=== PATIENT | female | born 1940 | race Caucasian/White ===

== ENCOUNTER 2016-11-18 01:05 | Emergency (ER) | payer MEDICAID ==
[~2016-11-18] VITALS: Ht 167.6 cm; Wt 68.0 kg
[~2016-11-18 01:05] MED LIST: ACETAMINOPHEN650 M6 GT; BACTRIM DS 8001 TAB PO; COLACE GT; COLACE100 M1 PO; COMPAZINE25 MG RC; DULCOLAX10 MG RC; EXELON1.5 MG PO; FERROUS SULF GT; GLUCAGEN1 MG; GLUCERNA GT; GLUCERNA PO; JANUVIA100 MG GT; LANTUS INS100 UNITS/ SUBQ; NACL IV; NOVOLIN N100 UNITS/ SUBQ; OSCAL+D 500 MG/1 TAB PO; ROCEPHIN 11000 MG/50 IV; TYLENOL325 M1 PO; ZINC OXIDE 20% TP; ZOCOR20 MG GT; ZOCOR20 MG PO
--- NOTE | 2016-11-18 01:11 | NUR ---
PT IMELDA BLS. TAKEN TO BED 3
[2016-11-18 01:13] VITALS: BP 124/76
--- NOTE | 2016-11-18 01:32 | NUR ---
Dr. Rodriguez evaluating patient at bedside.
--- NOTE | 2016-11-18 01:35 | NUR ---
REINSERTS GT TUBE 20FR/15ML, GASTRIC CONTENT PER ASPIRATE FROM GT.TUBE.
--- NOTE | 2016-11-18 01:40 | NUR ---
76Y/F PT. BIBA TO ED WITH C/O GT TUBE DISLODGED. PT. FROM [facility]. ALERT WITH EYE OPEN, RESPONDS TO TOUCH AND PAIN. BEDBOUND. RESPIRATIONS VIA NC O2 2 LPM,EVEN AND UNLABORED. GT TUIBE DISLODGED, COVER WITH GAUZE, GASTRIC CONTENT NOTED. VSS, NO S/SX OF DISTRESS AT THIS TIME. DR. SANTOS MADE AWARE OF PT. STATUS.
--- NOTE | 2016-11-18 02:24 | NUR ---
X-Ray at bedside.
--- NOTE | 2016-11-18 03:17 | NUR ---
Note carlota in EDM - 11/18/16 at 0326 by [facility] Patient discharged with v/s stable. Written and verbal after care instructions given and explained. Patient verbalized understanding. Ambulance Transport with to alf. All questions addressed prior to discharge. Advised to follow up with PMD.
--- NOTE | 2016-11-18 03:23 | NUR ---
PT TAKEN BY [facility] TO [facility] ROOM 19C
[2016-11-18 03:24] VITALS: BP 114/50
--- NOTE | 2016-11-18 03:25 | NUR ---
SPOKE TO CINDY AT [facility], PT WAS JUST PICKED UP BY [facility] Doll ON ROUTE BACK TO [facility]
--- NOTE | 2016-11-18 03:26 | NUR ---
Patient discharged with v/s stable. Written and verbal after care instructions given and explained. Patient verbalized understanding. Ambulance Transport with to [facility]. All questions addressed prior to discharge. Advised to follow up with PMD.
== END 2016-11-18 03:26 | disposition home or self-care (01) ==
LOC: MED 01:05
DX: Z43.1 Encounter for attention to gastrostomy (principal); J45.909 Unspecified asthma, uncomplicated; E11.9 Type 2 diabetes mellitus without complications; I10 Essential (primary) hypertension; Z79.4 Long term (current) use of insulin; Z79.899 Other long term (current) drug therapy
CPT/HCPCS: 43760; 74241; 99284; Q0092

== ENCOUNTER 2016-12-12 07:21 | Emergency (ER) | payer MEDICAID ==
[~2016-12-12] VITALS: Ht 167.6 cm; Wt 68.0 kg
[2016-12-12 07:26] VITALS: BP 110/54
--- NOTE | 2016-12-12 07:41 | NUR ---
ER MD AT BEDSIDE FOR EXAM
--- NOTE | 2016-12-12 07:55 | NUR ---
ermd reiserted gtube without difficulties/flushed by ermd .dressing applied. ermd said no need to have xr done for gtube placement confirmation
--- NOTE | 2016-12-12 11:18 | NUR ---
NO ACUTE CHANGE IN CONDITION, PT WITH EYES CLOSED, IN NAD. RESP EVEN AND UNLABORED, ON VIA NC @98%. SR UP X2, BED LOCKED FOR SAFETY. WILL CONT TO MONITOR NEEDED. AWAITING TRANSPORTATION.
--- NOTE | 2016-12-12 13:02 | NUR ---
TRANSPORT AMBULANCE TO TAKE PT BACK TO [facility]. UPDATED ON VITALS AND STATUS. VSS, PT STABLE FOR TRANSFER. ALL ACCORDINGPAPERWORK AND OCUMENTS ALONG WITH FACESHEET WITH AMBULANCE PERSONNEL.
[2016-12-12 13:26] VITALS: BP 126/81
== END 2016-12-12 13:02 ==
LOC: MED 07:22
DX: Z43.1 Encounter for attention to gastrostomy (principal)

== ENCOUNTER 2018-02-13 05:30 | Inpatient (IN) | payer MEDICAID ==
[~2018-02-13] VITALS: Ht 152.4 cm; Wt 65.3 kg
[~2018-02-13 05:30] MED LIST changes: +ACET-8331 GT; -ACETAMINOPHEN650 M6 GT; -BACTRIM DS 8001 TAB PO; +BISA10SU1 RC; +COL100L GT; -COLACE GT; -COLACE100 M1 PO; +COM25S RC; -COMPAZINE25 MG RC; -DULCOLAX10 MG RC; -EXELON1.5 MG PO; +FERR75LI22 GT; -FERROUS SULF GT; +GLU1I; -GLUCAGEN1 MG; -GLUCERNA GT; -GLUCERNA PO; -JANUVIA100 MG GT; -LANTUS INS100 UNITS/ SUBQ; +LANTUS SUBQ; -NACL IV; +NOVN SUBQ; -NOVOLIN N100 UNITS/ SUBQ; -OSCAL+D 500 MG/1 TAB PO; +OSCD500 PO; +RIVA1.5C2 PO; -ROCEPHIN 11000 MG/50 IV; +SIMV20TA1 GT; +SIMV20TA1 PO; +SITA100T8 GT; -TYLENOL325 M1 PO; -ZINC OXIDE 20% TP; +ZINC20OI TP; -ZOCOR20 MG GT; -ZOCOR20 MG PO; +[UNRECOGNIZED DRUG - CODE] GT; +[UNRECOGNIZED DRUG - CODE] IV; +[UNRECOGNIZED DRUG - CODE] PO
--- NOTE | 2018-02-13 05:31 | NUR ---
Patient BIBA ACLS, transferred to bed 4. RN evaluating patient at bedside.
[2018-02-13 05:35] VITALS: BP 102/60
--- NOTE | 2018-02-13 05:35 | NUR ---
77/F BIBA FROM [facility]. PER EMS, PT ALOC X3 HRS, [place] PUCKERING OF MOUTH, FROWNING AND MAKING INTERMITTENT UNUSUAL SOUNDS. BS 221 [address] SCENE. EMS PLACED R HAND 22G, 1L NS BOLUS RUNNING. PT APHASIC, BEDBOUND AT BASELINE. LUNG SOUNDS CLEAR BL. ABD SOFT ROUND NONTENDER, BS ACTIVE X4. G TUBE NOTED. HX DEMENTIA, DYSPHAGIA S/P PEG, DM2, HTN. CONNECTED TO MONITOR. ER MD AT BEDSIDE TO EVALUATE PT.
[2018-02-13] MEDS ORDERED: DOCU100T31 GT (06:00)
[2018-02-13] MEDS ORDERED: SLIDE SUBQ (06:00)
[2018-02-13] MEDS ORDERED: SIMV20TA1 GT (06:00)
[2018-02-13] MEDS ORDERED: FERR220E24 GT (06:00)
[2018-02-13] MEDS ORDERED: NACL 0.9% 1,000 ML IV ONE ×2 (06:10→07:30)
[2018-02-13 06:28] LABS: BASOPHILS # (AUTO) 0.1 K/uL (0.00-0.22); BASOPHILS % (AUTO) 0.8 % (0.0-2.0); EOSINOPHILS # (AUTO) 0.2 K/uL (0-0.4); EOSINOPHILS % (AUTO) 2.9 % (0.0-4.0); HEMATOCRIT 37.9 % (36-48); LYMPHOCYTES # (AUTO) 1.6 K/uL (2.5-16.5); LYMPHOCYTES % (AUTO) 18.4 % (20.5-51.1); MEAN CORPUSCULAR HEMOGLOBIN 31 pg (27-31); MEAN CORPUSCULAR HGB CONC 32 g/dL (33-37); MEAN CORPUSCULAR VOLUME 99.5 fL (80-94); MONOCYTES # (AUTO) 0.3 K/uL (0.8-1.0); MONOCYTES % (AUTO) 3.8 % (1.7-9.3); NEUTROPHILS # (AUTO) 6.3 K/uL (1.8-7.7); NEUTROPHILS % (AUTO) 74.1 % (42.2-75.2); PLATELET COUNT (AUTO) 106 K/uL (140-450); RED BLOOD CELL COUNT(AUTO) 3.81 MIL/uL (4.20-5.40); RED CELL DISTRIBUTION WIDTH 15.3 % (11.6-13.7); WHITE BLOOD COUNT (AUTO) 8.5 K/uL (4.8-10.8)
--- NOTE | 2018-02-13 06:52 | NUR ---
PT RESTING IN BED, FLACC 0, VSS ON O2 4L NC, RR EVEN AND UNLABORED. ALL NEEDS MET AT THIS TIME.
[2018-02-13 06:53] LABS: PROTHROMBIN TIME 9.9 secs (10.8-13.4)
--- NOTE | 2018-02-13 07:10 | NUR ---
Pt report given to SHELBY LOWRY. Transfer of care at this time.
[2018-02-13 07:11] LABS: ALBUMIN 2.7 g/dL (3.4-5.0); ANION GAP 9.6 (8-16); ASPARTATE AMINOTRANSFERASE 46 U/L (15-37); CARBON DIOXIDE 33.5 mmol/L (21-32); CHLORIDE 116 mmol/L (98-107); CREATININE 0.7 mg/dL (0.6-1.3); GLUCOSE 301 mg/dL (74-106); LIPASE 246 U/L (73-393); POTASSIUM 4.1 mmol/L (3.5-5.1); SODIUM SERUM 155 mmol/L (136-145); TOTAL BILIRUBIN 0.5 mg/dL (0.0-1.0); UREA NITROGEN, BLOOD 45 mg/dL (7-18)
[2018-02-13 07:11] LABS: BILIRUBIN,URINE NEGATIVE (NEGATIVE); BLOOD, URINE TRACE-I (NEGATIVE); LEUKOCYTE ESTERASE ,URINE SMALL (NEGATIVE); NITRITE, URINE NEGATIVE (NEGATIVE); PH,URINE 6.5 (5.0-9.0); UGLUCOSE >=1000 (NEGATIVE)
[2018-02-13 07:12] LABS: APPEARANCE,URINE CLOUDY (CLEAR); COLOR,URINE YELLOW (YELLOW)
[2018-02-13 07:13] LABS: RBC,URINE NONE SEEN /HPF (0-5); WBC,URINE 20-60 /HPF (0-5)
[2018-02-13 07:14] LABS: YEAST,URINE Moderate /HPF (None Seen)
--- NOTE | 2018-02-13 07:15 | NUR ---
pt. resting comfortably in bed,sleeping rr even and unlabored. will continue to monitor.
--- NOTE | 2018-02-13 07:24 | NUR ---
Claudia from lab called to report critical of lactic acid: 2.6 .
[2018-02-13] MEDS ORDERED: LEVOFLOXACIN 750 MG/D5W PREMIX 150 ML IV ONE (08:30)
--- NOTE | 2018-02-13 08:30 | NUR ---
pt. resting comfortanly in bed, rr even and unlabored. bed in lowest position. vss. Will continue to monitor.
[2018-02-13] MEDS ORDERED: ACETAMINOPHEN 325 MG TAB PO PRN (08:40)
[2018-02-13] MEDS ORDERED: DOCUSATE SODIUM 100 MG GELCAP PO PRN (08:40)
[2018-02-13] MEDS ORDERED: ONDANSETRON 4 MG/2 ML VIAL IM/IVP PRN (08:40)
[2018-02-13] MEDS ORDERED: INSULIN REGULAR, HUMAN 100 UNIT/ML VIAL SUBQ ONE (08:45)
[2018-02-13] MEDS ORDERED: DEXT 5% / NACL 0.45% 1,000 ML IV ONE (08:50)
[2018-02-13] MEDS ORDERED: ACETAMINOPHEN 650 MG/20.3 ML UDC GT PRN (08:55)
[2018-02-13] MEDS ORDERED: DOCUSATE 100 MG/10 ML UDC GT PRN (08:55)
[2018-02-13] MEDS ORDERED: DEXTROSE 50% 50 ML SYR IVP PRN (09:20)
--- NOTE | 2018-02-13 09:29 | NUR ---
Patient will be admitted to care of dr. Matthews . Admited to telemetry . Will go to room 121B. Belongings list completed. Report to SHELBY Ramos .
--- NOTE | 2018-02-13 09:30 | NUR ---
PATIENT BROUGHT TO UNIT FROM THE ER VIA GURNEY. RECEIVED BEDSIDE REPORT FROM CLOTH REELER NEO. PATIENT IS APHASIC. HAS NASAL CANNULA AT 2LPM, HAS NO SIGNS AND SYMPTOMS OF ACUTE DISTRESS NOTED AT THIS TIME. HAS TWO IV SITES, LEFT WRIST 20 G, AND RIGHT HAND 22G. SITES ARE CLEAN, DRY PATENT AND INTACT. HAS G-TUBE. ARMS ARE SEMI CONTRACTED. ORIENTED PATIENT TO THE ROOM. EXPLAINED CALL LIGHT. PATIENT UNABLE TO COMPREHEND. BED IN LOWEST POSITION, SIDE RAILS UP X2, CALL LIGHT WITHIN REACH. WILL CONTINUE TO MONITOR.
[2018-02-13] MEDS ORDERED: DOCUSATE 100 MG/10 ML UDC GT SCH (09:37)
--- NOTE | 2018-02-13 10:44 | NUR ---
PATIENT HAS BEEN SCREENED AND CATEGORIZED HIGH NUTRITION RISK. PATIENT WILL BE SEEN WITHIN 1-2 DAYS OF ADMISSION. 02/13/18 02/14/[address]
[2018-02-13 10:45] LABS: MAGNESIUM 2.6 mg/dL (1.8-2.4); PHOSPHORUS 2.2 mg/dL (2.5-4.9); THYROID STIMULATING HORMONE 3.38 uIU/mL (0.34-3.74)
[2018-02-13] MEDS: NACL 0.45% 1,000 ML IV SCH (11:10)
[2018-02-13] MEDS: BLOOD GLUCOSE MONITORING 1 DEV DEV FS SCH ×3 (11:56→21:09)
[2018-02-13 12:00] VITALS: BP 112/43
[2018-02-13 16:00] VITALS: BP 107/56
--- NOTE | 2018-02-13 16:00 | NUR ---
02/13/18 RD INITIAL ASSESSMENT COMPLETED PLEASE REFER TO NUTRITION ASSESSMENT UNDER CARE ACTIVITY FOR ESTIMATED NUTRITIONAL NEEDS. 1. WHEN/IF MEDICALLY STABLE TO BEGIN NUTRITION, CONSIDER ADVANCING TF TOLERATED TO GLUCERNA 1.2 @ GOAL RATE 55ML/H WITH 120ML FLUSH Q4H --THIS WILL PROVIDE 1584 KCAL (100% ESTIMATED ENERGY NEEDS), 79.2 GM PROTEIN (108% ESTIMATED PROTEIN NEEDS), AND 1542 ML FLUID --INTIATE TF AT 20ML/H AND INCREASE 10 ML Q4-6H UNTIL GOAL RATE ACHIEVED 2. RD TO FOLLOW-UP 2-3 DAYS, HIGH RISK JOYCE HULL RD
[2018-02-13] MEDS ORDERED: CALCIUM CARB/VIT-D 500 MG/200 IU 1 TAB GT SCH (17:00)
[2018-02-13] MEDS ORDERED: SODIUM PHOS / POTASSIUM PHOS 1 PKT PDR GT SCH (17:00)
--- NOTE | 2018-02-13 17:20 | NUR ---
WENT TO GIVE PATIENTS G-TUBE MEDICATION BUT NOTICED I WASN'T ABLE TO CONNECT THE PISTON SYRINGE TO THE G TUBING DUE TO THE CONNECTION. MADE SHANE VALDEZ RN AWARE.
--- NOTE | 2018-02-13 19:30 | NUR ---
ENDORSED PATIENT TO HORN PLAYER RN FOR CONTINUITY OF CARE. PATIENT IN STABLE CONDITION.
--- NOTE | 2018-02-13 19:32 | NUR ---
RECEIVED PT ON BED WITH EYES CLOSED, APHASIC, PT DOES NOT OPEN EYES BUT MOANS ONLY, WITHDRAWS TO TOUCH AND LIGHT PAIN, VITAL SIGNS STABLE, FLACC-0 AND NO SOB NOTED, G-TUBE CLAMPED AT THIS TIME, TO START ON TUBE FEEDING, IVF INFUSING WELL, SAFETY MEASURES IN PLACE, PLAN OF CARE DISCUSSED WITH FAMILY MEMBERS AT BEDSIDE, WILL REPOSITION Q2H AND OFFLOAD PRESSURES AREAS, CALL LIGHT WITHIN REACH.
[2018-02-13 20:00] VITALS: BP 99/49
[2018-02-13] MEDS: INSULIN LANTUS 100 UNITS/ML 10 ML VIAL SUBQ SCH (21:18)
[2018-02-13] MEDS: INSULIN LISPRO SLIDING SCALE 100 UNITS/ML VIAL SUBQ PRN (21:19)
--- NOTE | 2018-02-13 21:22 | NUR ---
NO G-TUBE RESIDUAL NOTED, TUBE FEEDING OF GLUCERNA 1.2 10 ML/H STARTED WITH FREE WATER FLUSH OF 120ML Q4H AND TO INCREASED RATE 10ML Q3H IF TOLERATING WELL WITH GOAL RATE OF 55ML/H, HOB ELEVATED AT ALL TIMES, AZAEL GAUZE APPLIED TO G-TUBE SITE, NO DRAINAGE OR REDNESS NOTED TO SITE, DUE LANTUS ADMINISTERED, ROCEPHIN IVPB INFUSING WELL, MONITORED FOR REACTION, NEEDS ANTICIPATED.
[2018-02-14] VITALS: BP 107/48
--- NOTE | 2018-02-14 00:30 | NUR ---
PT BM WITH MODERATE SOFT BLACK STOOL, INCONTINENT OF URINE, PERINEAL CARE DONE, REPOSITIONED AND OFFLOAD PRESSURE AREAS, NO G-TUBE RESIDUAL NOTED, G-TUBE FEEDING RATE INCREASED TO 20ML/H, MAINTAINED HOB ELEVATED AT ALL TIMES, MONITORED CLOSELY.
[2018-02-14] MEDS: NACL 0.45% 1,000 ML IV SCH ×2 (01:32→12:10)
--- NOTE | 2018-02-14 03:50 | NUR ---
PT SLEEPING, VITAL SIGNS STABLE, FLCC-0, NO SOB NOTED, 10 ML G-TUBE RESIDUAL NOTED, FEEDING RATE INCREASES TO 30ML/H, MONITORED CLOSELY.
[2018-02-14 04:00] VITALS: BP 109/43
[2018-02-14] MEDS: INSULIN LISPRO SLIDING SCALE 100 UNITS/ML VIAL SUBQ PRN ×4 (05:55→20:34)
--- NOTE | 2018-02-14 06:00 | NUR ---
BLOOD SUGAR CHECKED WITH 224 RESULT, COVERAGE GIVEN, 5ML RESIDUAL NOTED, G-TUBE FEEDING RATE INCREASED TO 40ML/H, HOB ELEVATED AT ALL TIMES, IVF INFUSING WELL, MONITORED CLOSELY.
[2018-02-14] MEDS: BLOOD GLUCOSE MONITORING 1 DEV DEV FS SCH ×4 (06:55→20:25)
[2018-02-14 07:05] LABS: BASOPHILS % (AUTO) 0.4 % (0.0-2.0); EOSINOPHILS # (AUTO) 0.2 K/uL (0-0.4); EOSINOPHILS % (AUTO) 2.4 % (0.0-4.0); HEMATOCRIT 32.2 % (36-48); HEMOGLOBIN 10.3 g/dL (12.0-16.0); LYMPHOCYTES % (AUTO) 25.8 % (20.5-51.1); MEAN CORPUSCULAR HEMOGLOBIN 32 pg (27-31); MEAN CORPUSCULAR HGB CONC 32 g/dL (33-37); MEAN CORPUSCULAR VOLUME 99.1 fL (80-94); MONOCYTES # (AUTO) 0.5 K/uL (0.8-1.0); NEUTROPHILS # (AUTO) 4.9 K/uL (1.8-7.7); NEUTROPHILS % (AUTO) 65.4 % (42.2-75.2); PLATELET COUNT (AUTO) 90 K/uL (140-450); RED BLOOD CELL COUNT(AUTO) 3.25 MIL/uL (4.20-5.40); RED CELL DISTRIBUTION WIDTH 15.2 % (11.6-13.7); WHITE BLOOD COUNT (AUTO) 7.6 K/uL (4.8-10.8)
--- NOTE | 2018-02-14 07:10 | NUR ---
PT SLEEPING, NO SIGNS OF DISTRESS, REPORT GIVEN TO SHELBY ESTRELLA FOR CONTINUITY OF CARE.
--- NOTE | 2018-02-14 07:11 | NUR ---
RECEIVED REPORT FROM MULTI OPERATION MACHINE OPERATOR RN. PATIENT IS APHASIC, DOES NOT RESPOND TO VERBAL COMMANDS, HAS EYES CLOSED. THIS IS PATIENTS BASELINE. HAS NO SIGNS AND SYMPTOMS OF ACUTE DISTRESS NOTED AT THIS TIME. HAS IV TO THE LEFT HAND 20 G INFUSING 1/2 NS AT 80 ML/HR. HAS IV TO THE RIGHT HAND 22G SALINE LOCK. SITES ARE CLEAN, DRY, PATENT AND INTACT. PATIENT HAS G-TUBE WITH FEEDING AT A RATE OF 40 ML/HR. WILL INCREASE TO MEET GOAL. BED IS IN LOWEST POSITION, SIDE RAILS UP X2, CALL LIGHT WITHIN REACH. WILL CONTINUE TO MONITOR.
[2018-02-14 08:00] VITALS: BP 104/56
[2018-02-14 08:12] LABS: ANION GAP 7.2 (8-16); CARBON DIOXIDE 29.5 mmol/L (21-32); CHLORIDE 115 mmol/L (98-107); CREATININE 0.4 mg/dL (0.6-1.3); GLUCOSE 213 mg/dL (74-106); POTASSIUM 3.7 mmol/L (3.5-5.1); SODIUM SERUM 148 mmol/L (136-145); UREA NITROGEN, BLOOD 19 mg/dL (7-18)
[2018-02-14 08:20] LABS: MAGNESIUM 2.2 mg/dL (1.8-2.4); PHOSPHORUS 2.1 mg/dL (2.5-4.9)
[2018-02-14 08:29] LABS: T4 (THYROXINE) 4.4 ug/dL (4.5-12.0)
[2018-02-14] MEDS ORDERED: INSULIN LANTUS 100 UNITS/ML 10 ML VIAL SUBQ SCH (09:00)
--- NOTE | 2018-02-14 09:10 | NUR ---
PATIENTS FAMILY HERE AND REQUESTING TO TALK TO DR JOSEPH. WILL INFORM HIM.
--- NOTE | 2018-02-14 09:30 | NUR ---
PATIENT HAD ZERO RESIDUAL. INCREASED FEEDING RATE TO 55, WHICH IS THE GOAL. PATIENT TOLERATING FEEDING WELL. WILL CONTINUE TO MONITOR.
[2018-02-14] MEDS: FLUCONAZOLE 100 MG TAB GT SCH (09:42)
[2018-02-14] MEDS: DOCUSATE 100 MG/10 ML UDC GT SCH (09:42)
[2018-02-14] MEDS: FERROUS SULFATE 300 MG/5 ML UDC GT SCH (09:42)
[2018-02-14] MEDS: LACTOBACILLUS RHAMNOSUS GG 1 EACH CAP GT SCH (09:43)
--- NOTE | 2018-02-14 11:30 | NUR ---
PATIENTS BLOOD SUGAR IS 202, WILL ADMINISTER INSULIN. NO S/SX OF DISTRESS NOTED.
[2018-02-14 12:00] VITALS: BP 113/65
--- NOTE | 2018-02-14 13:50 | NUR ---
PATIENT RESTING IN BED. HAS NO SIGNS AND SYMPTOMS OF ACUTE DISTRESS. WILL CONTINUE TO MONITOR.
--- NOTE | 2018-02-14 14:38 | NUR ---
Tribal Judge Note: Per Shanice from [facility] , patient is on a 7 day bed hold and is one of their residential patients. Shanice stated patient's healthcare decision maker is her daughter Shayna Patel. I called and spoke with Shayna , speaks Faroese. Per Shayna, she would like patient to return to [facility] upon discharge. She stated she spoke with MD this morning regarding patient's current medical condition.
[2018-02-14 16:00] VITALS: BP 106/45
--- NOTE | 2018-02-14 19:20 | NUR ---
ENDORSED PATIENT TO FASHION STYLIST RN FOR CONTINUITY CARE. PATIENT IN STABLE CONDITION.
--- NOTE | 2018-02-14 19:21 | NUR ---
RECEIVED BEDSIDE REPORT FROM DAY SHIFT NURSE SENA RN, PT STABLE, NO DISTRESS NOTED, PT APHASIC, IV TO L HAND 20G PATENT, INTACT, INFUSING 1/2 NS @ 80ML/HR, INFUSING WELL, IV TO R FA 22G PATENT, INTACT, SL, PT ON 2LPM O2 VIA NC, NO SOB NOTED, G TUBE IN PLACE WITH FEEDINGS, PT TOLERATING FEEDING WELL, INITIAL ASSESSMENT DONE, ALL SAFETY PRECAUTION MET, WILL CONTINUE TO MONITOR.
[2018-02-14 20:00] VITALS: BP 115/51
[2018-02-14] MEDS: INSULIN LANTUS 100 UNITS/ML 10 ML VIAL SUBQ SCH (20:34)
--- NOTE | 2018-02-14 20:34 | NUR ---
DUE MEDICATION ADMINISTERED, CHECKED ON PT BLOOD SUGAR, 210, INSULIN PER PROTOCOL GIVEN, PT TOLERATED WELL, CALL LIGHT WITHIN REACH, WILL CONTINUE TO MONITOR.
--- NOTE | 2018-02-14 22:29 | NUR ---
MEDICATION ORDERED GIVEN, PT TOLERATED WELL, TUBE FEEDING CHANGED, PT HAS NO RESIDUAL, TOLERATING FEEDING WELL, CALL LIGHT WITHIN REACH, WILL CONTINUE TO MONITOR.
[2018-02-14] MEDS ORDERED: SODIUM PHOS / POTASSIUM PHOS 1 PKT PDR GT SCH (22:30)
[2018-02-15] VITALS: BP 116/53
--- NOTE | 2018-02-15 00:05 | NUR ---
CHECKED ON PT, PT RESTING, NO DISTRESS NOTE, CALL LIGHT WITHIN REACH, WILL CONTINUE TO MONITOR.
[2018-02-15] MEDS: NACL 0.45% 1,000 ML IV SCH ×2 (00:58→14:40)
[2018-02-15 04:00] VITALS: BP 103/47
--- NOTE | 2018-02-15 04:04 | NUR ---
CHECKED ON PT, PT RESTING, NO DISTRESS NOTED, CALL LIGHT WITHIN REACH, V/S TAKEN, WNL, WILL CONTINUE TO MONITOR.
[2018-02-15] MEDS: BLOOD GLUCOSE MONITORING 1 DEV DEV FS SCH ×4 (05:39→21:17)
[2018-02-15] MEDS: INSULIN LISPRO SLIDING SCALE 100 UNITS/ML VIAL SUBQ PRN ×4 (05:40→21:22)
[2018-02-15 06:54] LABS: BASOPHILS % (AUTO) 0.3 % (0.0-2.0); EOSINOPHILS # (AUTO) 0.1 K/uL (0-0.4); EOSINOPHILS % (AUTO) 1.7 % (0.0-4.0); HEMATOCRIT 31.3 % (36-48); HEMOGLOBIN 10.1 g/dL (12.0-16.0); LYMPHOCYTES # (AUTO) 1.5 K/uL (2.5-16.5); LYMPHOCYTES % (AUTO) 17.6 % (20.5-51.1); MEAN CORPUSCULAR HEMOGLOBIN 32 pg (27-31); MEAN CORPUSCULAR HGB CONC 32 g/dL (33-37); MEAN CORPUSCULAR VOLUME 97.8 fL (80-94); MONOCYTES # (AUTO) 0.6 K/uL (0.8-1.0); MONOCYTES % (AUTO) 6.6 % (1.7-9.3); NEUTROPHILS # (AUTO) 6.3 K/uL (1.8-7.7); NEUTROPHILS % (AUTO) 73.8 % (42.2-75.2); PLATELET COUNT (AUTO) 100 K/uL (140-450); RED CELL DISTRIBUTION WIDTH 14.8 % (11.6-13.7); WHITE BLOOD COUNT (AUTO) 8.5 K/uL (4.8-10.8)
[2018-02-15 07:13] LABS: CHLORIDE 113 mmol/L (98-107); CREATININE 0.5 mg/dL (0.6-1.3); GLUCOSE 277 mg/dL (74-106); SODIUM SERUM 145 mmol/L (136-145); UREA NITROGEN, BLOOD 14 mg/dL (7-18)
--- NOTE | 2018-02-15 07:24 | NUR ---
REPORT GIVEN TO AM NURSE KAYLI RN, AT BEDSIDE. PT IN STABLE CONDITION. NO DISTRESS NOTED, CALL LIGHT WITHIN REACH.
--- NOTE | 2018-02-15 07:25 | NUR ---
REPORT RECEIVED FROM BAGGAGE SMASHER NURSE. PT SLEEPING COMFORTABLY IN BED, RESPIRATIONS EVEN & UNLABORED, NO SIGNS OF DISTRESS, RESPONSIVE TO VOICE & TOUCH. CALL LIGHT WITHIN REACH.
[2018-02-15 07:29] LABS: MAGNESIUM 2.4 mg/dL (1.8-2.4); PHOSPHORUS 2.8 mg/dL (2.5-4.9)
[2018-02-15 08:00] VITALS: BP 119/59
--- NOTE | 2018-02-15 08:30 | NUR ---
ALL DUE MEDS GIVEN. PT ELÍAS WELL. GT IN PLACE & PATENT. PT RESPONSIVE TO VOICE & TOUCH BUT NON-VERBAL & DOES NOT OPEN EYES. SAFETY MEASURES IN PLACE.
[2018-02-15] MEDS: LACTOBACILLUS RHAMNOSUS GG 1 EACH CAP GT SCH (08:39)
[2018-02-15] MEDS: FLUCONAZOLE 100 MG TAB GT SCH (08:39)
[2018-02-15] MEDS: FERROUS SULFATE 300 MG/5 ML UDC GT SCH (08:40)
[2018-02-15] MEDS: DOCUSATE 100 MG/10 ML UDC GT SCH (08:40)
[2018-02-15 09:41] VITALS: BP 119/59
--- NOTE | 2018-02-15 11:45 | NUR ---
PT TAKEN OFF DECISION UNIT RN, PT NOW M/S STATUS.
[2018-02-15] MEDS ORDERED: Z-GUARD PASTE TP PRN (16:05)
[2018-02-15 16:11] VITALS: BP 103/42
--- NOTE | 2018-02-15 19:19 | NUR ---
REPORT GIVEN TO STEAM PRESSER NURSE.
--- NOTE | 2018-02-15 19:20 | NUR ---
RECD. RESTING IN BED, SLEEPING BUT MOVES WHEN TOUCHED AND QUESTIONS ASKED, APHASIC. RESPIRATION EVEN AND UNLABORED. IV OF 1/2 NS AT 80 ML/HR INFUSING. GT FEEDING OF GLUCERNA AT 55 ML/HR INFUSING. GT SITE DRY AND CLEAN. HOB ELEVATED 35 DEGREES. SACRAL WOUND COVERED WITH DRESSING, DRY AND INTACT. PLAN OF CARE DISCUSSED WITH DAUGHTER. VERBALIZED UNDERSTANDING. NO APPEARANCE OF PAIN NOTED.
[2018-02-15] MEDS: INSULIN LANTUS 100 UNITS/ML 10 ML VIAL SUBQ SCH (21:20)
--- NOTE | 2018-02-15 21:20 | NUR ---
BS - 219, MEDICATED WITH LANTUS ORDERED.
--- NOTE | 2018-02-15 22:00 | NUR ---
HAD BM, CLEANSED AND REPOSITIONED IN BED WITH PILLOWS FOR COMFORT.
[2018-02-16] VITALS: BP 106/56
--- NOTE | 2018-02-16 | NUR ---
SLEEPING COMFORTABLY IN BED.
[2018-02-16] MEDS: NACL 0.45% 1,000 ML IV SCH ×3 (01:40→16:44)
--- NOTE | 2018-02-16 04:00 | NUR ---
CONDITION REMAIN STABLE. NO APPEARANCE OF PAIN NOTED 0/10.
[2018-02-16] MEDS: BLOOD GLUCOSE MONITORING 1 DEV DEV FS SCH ×4 (06:19→20:55)
[2018-02-16] MEDS: INSULIN LISPRO SLIDING SCALE 100 UNITS/ML VIAL SUBQ PRN ×4 (06:21→21:29)
[2018-02-16 07:17] LABS: BASOPHILS % (AUTO) 0.3 % (0.0-2.0); EOSINOPHILS # (AUTO) 0.2 K/uL (0-0.4); EOSINOPHILS % (AUTO) 3.1 % (0.0-4.0); HEMATOCRIT 30.4 % (36-48); HEMOGLOBIN 10.1 g/dL (12.0-16.0); LYMPHOCYTES # (AUTO) 1.8 K/uL (2.5-16.5); LYMPHOCYTES % (AUTO) 24.4 % (20.5-51.1); MEAN CORPUSCULAR HEMOGLOBIN 32 pg (27-31); MEAN CORPUSCULAR HGB CONC 33 g/dL (33-37); MEAN CORPUSCULAR VOLUME 97.2 fL (80-94); MONOCYTES # (AUTO) 0.4 K/uL (0.8-1.0); MONOCYTES % (AUTO) 5.7 % (1.7-9.3); NEUTROPHILS # (AUTO) 4.8 K/uL (1.8-7.7); NEUTROPHILS % (AUTO) 66.5 % (42.2-75.2); PLATELET COUNT (AUTO) 103 K/uL (140-450); RED BLOOD CELL COUNT(AUTO) 3.12 MIL/uL (4.20-5.40); WHITE BLOOD COUNT (AUTO) 7.2 K/uL (4.8-10.8)
[2018-02-16 07:31] LABS: ANION GAP 6.4 (8-16); CARBON DIOXIDE 29.6 mmol/L (21-32); CHLORIDE 110 mmol/L (98-107); CREATININE 0.5 mg/dL (0.6-1.3); GLUCOSE 289 mg/dL (74-106); SODIUM SERUM 142 mmol/L (136-145); UREA NITROGEN, BLOOD 14 mg/dL (7-18)
[2018-02-16 07:34] LABS: MAGNESIUM 2.2 mg/dL (1.8-2.4); PHOSPHORUS 2.7 mg/dL (2.5-4.9)
--- NOTE | 2018-02-16 07:35 | NUR ---
CONDITION REMAIN STABLE. ENDORSED TO AM NURSE FOR CONTINUITY OF CARE.
--- NOTE | 2018-02-16 07:36 | NUR ---
REPORT RECEIVED FROM PUBLIC HEALTH AIDES TEACHER NURSE, PT SLEEPING QUIETLY IN NAD, RESP EVNE UNLABORED, SKIN WARM DRY COLOR WNL, APPEARS IN NO PAIN OR DISCOMFORT, PLAN OF CARE REVIEWED, ALL SAFETY MEASURES IN PLACE, WILL CONTINUE TO MONITOR.
[2018-02-16 08:00] VITALS: BP 111/41
--- NOTE | 2018-02-16 08:08 | NUR ---
PT INCONTINENT, BMX1, PT CLEANED, PERICARE DONE, POSITION CHANGED, PT ELÍAS WELL, WILL CONTINUE TO MONTIOR.
--- NOTE | 2018-02-16 10:08 | NUR ---
BED BATH GIVEN BY FLEXIBLE NANNY, PT ELÍAS WELL.
[2018-02-16] MEDS: FLUCONAZOLE 100 MG TAB GT SCH (10:27)
[2018-02-16] MEDS: FERROUS SULFATE 300 MG/5 ML UDC GT SCH (10:27)
[2018-02-16] MEDS: LACTOBACILLUS RHAMNOSUS GG 1 EACH CAP GT SCH (10:27)
[2018-02-16] MEDS: DOCUSATE 100 MG/10 ML UDC GT SCH (10:27)
--- NOTE | 2018-02-16 13:30 | NUR ---
Training Technician Note: I faxed patient's medical information to [facility]. Per Crossbar Switch Adjuster Diana, patient is not on isolation. Per Angel from [facility] , patient may go to room 18B at their facility over weekend, accepting physician is Lei Cabrales.
[2018-02-16 16:00] VITALS: BP 123/83
--- NOTE | 2018-02-16 16:38 | NUR ---
02/16/18 RD FOLLOW UP COMPLETED PLEASE REFER TO NUTRITION PROGRESS NOTE UNDER CARE ACTIVITY FOR ESTIMATED NUTRITION NEEDS. RD RECOMMENDATIONS: 1. CONTINUE WITH TUBE FEED TOLERATED -- NUTRITION SUPPORT PROVIDES: 1584KCAL, 79.2 GM PRO, AND 1542 ML FLUID. THIS IS MEETING 100% OF ESTIMATED KCAL NEEDS AND 108% PATIENT ESTIMATED PROTEIN NEEDS 2. RD WILL F/U 2-3 DAYS; HIGH RISK. JOYCE HULL RD
--- NOTE | 2018-02-16 16:52 | NUR ---
BM X1, PERICARE DONE, POSIITON CHANGED, INSULIN 4U GIVEN FOR 226 BLOOD SUGAR
--- NOTE | 2018-02-16 19:02 | NUR ---
DR. AGUDELO NOTIFIED OF URINE C&S FINAL RESULT.
--- NOTE | 2018-02-16 19:15 | NUR ---
REPORT GIVEN TO CLINICAL DENTAL TECHNICIAN NURSE. PT SLEEPING IN BED, RESP EVEN UNLABORED. SAFETY MEASURES IN PLACE.
--- NOTE | 2018-02-16 19:16 | NUR ---
REPORT RECEIVED FROM AM NURSE. PT IN STABLE CONDITION. AAOX1. BOARD UPDATED AND INTRODUCED SELF TO PT. IV SITE PATENT AND INTACT. SKIN IS WARM, DRY, AND NOT INTACT DUE TO A SACRAL WOUND THAT IS HEALED BUT OPEN. PT HAS TUBE FEEDING 55ML/HR OF GLUCERNA 1.2 WITH NO RESIDUAL. 2L VIA NC. BED LOCKED IN LOW POSITION. CALL KULKARNI WITHIN REACH.
--- NOTE | 2018-02-16 21:25 | NUR ---
OCTAVIA TINSLEY. LANTUS 10 UNITS GIVEN. BS 181. 2 UNITS OF HUMALOG GIVEN. PT TOLERATED WELL.
[2018-02-16] MEDS: INSULIN LANTUS 100 UNITS/ML 10 ML VIAL SUBQ SCH (21:29)
--- NOTE | 2018-02-16 23:45 | NUR ---
VS STABLE. NO S/S OF DISTRESS NOTED. CHEST EXPANSION VISIBLE. WILL CONTINUE TO MONITOR.
[2018-02-17] VITALS: BP 112/49
--- NOTE | 2018-02-17 03:00 | NUR ---
PT SLEEPING COMFORTABLY SUPINE. NO S/S OF DISTRESS NOTED. WILL CONTINUE TO MONITOR.
[2018-02-17] MEDS: NACL 0.45% 1,000 ML IV SCH (05:15)
--- NOTE | 2018-02-17 05:30 | NUR ---
BS 271. 6 UNITS OF HUMALOG GIVEN TO THE RIGHT UPPER ARM. PT TOLERATED WELL.
[2018-02-17] MEDS: BLOOD GLUCOSE MONITORING 1 DEV DEV FS SCH (05:33)
[2018-02-17] MEDS: INSULIN LISPRO SLIDING SCALE 100 UNITS/ML VIAL SUBQ PRN (05:35)
--- NOTE | 2018-02-17 07:12 | NUR ---
REPORT GIVEN TO AM NURSE AT BEDSIDE. PT IN STABLE CONDITION.
--- NOTE | 2018-02-17 07:12 | NUR ---
BEDSIDE REPORT GIVEN FROM PAROLE DIRECTOR NURSE YOSEF. PT IN BED, APHASIC, BEDBOUND. IV IN L HAND 20 G RUNNING NS AT 80 ML/HR. CONTINUOS FEEDING AT 55 ML/HR THOUGHT G-TUBE. NO SIGNS OF ACUTE DISTRESS, BED IN LOWEST POSITION, CALL LIGHT WITHIN REACH, WILL CONTINUE TO MONITOR.
[2018-02-17 07:17] LABS: BASOPHILS % (AUTO) 0.5 % (0.0-2.0); EOSINOPHILS # (AUTO) 0.2 K/uL (0-0.4); EOSINOPHILS % (AUTO) 2.3 % (0.0-4.0); HEMOGLOBIN 9.7 g/dL (12.0-16.0); LYMPHOCYTES # (AUTO) 1.8 K/uL (2.5-16.5); LYMPHOCYTES % (AUTO) 24.7 % (20.5-51.1); MEAN CORPUSCULAR HEMOGLOBIN 32 pg (27-31); MEAN CORPUSCULAR HGB CONC 33 g/dL (33-37); MEAN CORPUSCULAR VOLUME 96.5 fL (80-94); MONOCYTES # (AUTO) 0.4 K/uL (0.8-1.0); MONOCYTES % (AUTO) 4.8 % (1.7-9.3); NEUTROPHILS % (AUTO) 67.7 % (42.2-75.2); PLATELET COUNT (AUTO) 109 K/uL (140-450); RED BLOOD CELL COUNT(AUTO) 3.01 MIL/uL (4.20-5.40); RED CELL DISTRIBUTION WIDTH 14.4 % (11.6-13.7); WHITE BLOOD COUNT (AUTO) 7.3 K/uL (4.8-10.8)
[2018-02-17 07:37] LABS: ANION GAP 9.5 (8-16); CARBON DIOXIDE 26.1 mmol/L (21-32); CHLORIDE 105 mmol/L (98-107); CREATININE 0.4 mg/dL (0.6-1.3); GLUCOSE 253 mg/dL (74-106); POTASSIUM 4.6 mmol/L (3.5-5.1); SODIUM SERUM 136 mmol/L (136-145); UREA NITROGEN, BLOOD 12 mg/dL (7-18)
[2018-02-17 08:00] VITALS: BP 125/45
[2018-02-17] MEDS ORDERED: LEVOFLOXACIN 500 MG TAB PO SCH (09:00)
[2018-02-17] MEDS ORDERED: FLUC100T1 GT (09:06)
[2018-02-17] MEDS ORDERED: LEVO500T2 PO (09:06)
[2018-02-17] MEDS ORDERED: LACT10CA GT (09:06)
[2018-02-17] MEDS: FLUCONAZOLE 100 MG TAB GT SCH (09:19)
[2018-02-17] MEDS: LACTOBACILLUS RHAMNOSUS GG 1 EACH CAP GT SCH (09:20)
[2018-02-17] MEDS: FERROUS SULFATE 300 MG/5 ML UDC GT SCH (09:20)
[2018-02-17] MEDS: DOCUSATE 100 MG/10 ML UDC GT SCH (09:20)
--- NOTE | 2018-02-17 09:30 | NUR ---
PT RESTING IN BED NO SIGNS OF ACUTE DISTRESS, CALL LIGHT WITHIN REACH WILL CONTINUE TO MONITOR.
[2018-02-17 10:40] VITALS: BP 125/45
--- NOTE | 2018-02-17 11:20 | NUR ---
CALLED FAMILY REGARDING PT BEING TRANSFERRED, NO ANSWER LEFT MESSAGE. D/C IV IN L HAND, 20 G, CATH INTACT. PT UNABLE TO SIGN D/C PAPERWORK, PT LEFT UNIT STABLE VIA DOC ALAMO. Addendum: 02/17/18 at 1158 by Melissa Black RN PICTURE OF CLOSED SACRAL WOUND TAKEN AND PLACED IN CHART.
[2018-02-18] MEDS ORDERED: LEVOFLOXACIN 250 MG TAB PO SCH (09:00)
== END 2018-02-17 11:20 | DRG 42 ==
LOC: MED 05:30 → MTU 08:45
PROVIDERS: ADMIT General Practice; ATTEND General Practice
DX: G30.9 Alzheimer's disease, unspecified (principal); N17.0 Acute kidney failure with tubular necrosis; E43 Unspecified severe protein-calorie malnutrition; G93.41 Metabolic encephalopathy; E87.0 Hyperosmolality and hypernatremia; E11.65 Type 2 diabetes mellitus with hyperglycemia; D68.59 Other primary thrombophilia; F02.81 Dementia in other diseases classified elsewhere, unspecified severity, with behavioral disturbance; G90.9 Disorder of the autonomic nervous system, unspecified; E87.8 Other disorders of electrolyte and fluid balance, not elsewhere classified; N39.0 Urinary tract infection, site not specified; E83.52 Hypercalcemia; E83.41 Hypermagnesemia; I10 Essential (primary) hypertension; J44.9 Chronic obstructive pulmonary disease, unspecified; I27.21 Secondary pulmonary arterial hypertension; Z86.73 Personal history of transient ischemic attack (TIA), and cerebral infarction without residual deficits; Z93.1 Gastrostomy status; Z68.28 Body mass index [BMI] 28.0-28.9, adult; Z79.899 Other long term (current) drug therapy; Z79.4 Long term (current) use of insulin; Z74.01 Bed confinement status
CPT/HCPCS: 36415; 70450; 71045; 80048; 80053; 81001; 82948; 83036; 83605; 83690; 83735; 83880; 83970; 84100; 84134; 84436; 84443; 84484; 85025; 85610; 87040; 87081; 87086; 87186; 93005; 93308; 93880; 93925; 93970; 96360; 96361; 99285; J0696; J1815; J1956; J7030; J7060; Q0092

== ENCOUNTER 2019-02-11 11:36 | Inpatient (IN) | payer MEDICAID ==
[~2019-02-11] VITALS: Ht 160 cm; Wt 63.5 kg
[~2019-02-11 11:36] MED LIST changes: -BISA10SU1 RC; -COL100L GT; -COM25S RC; +DOCU100T31 GT; +FERR220E24 GT; -FERR75LI22 GT; +FLUC100T1 GT; +LACT10CA GT; +LEVO500T2 PO; -NOVN SUBQ; -OSCD500 PO; -RIVA1.5C2 PO; -SIMV20TA1 PO; +SLIDE SUBQ; -ZINC20OI TP; -[UNRECOGNIZED DRUG - CODE] GT; -[UNRECOGNIZED DRUG - CODE] IV; -[UNRECOGNIZED DRUG - CODE] PO
--- NOTE | 2019-02-11 11:36 | NUR ---
Note undone in EDM - 02/11/19 at 1309 by MED IMELDA FROM [facility] FOR G TUBE REPLACEMENT. PER EMS, G-TUBE CAME OFF UNKNOWN TIME LAST NIGHT. PT NON VERBAL, ON O2 2 LPM. NEUROLOGICALLY AT BASE LINE. IV LEFT HAND 18 G INITIATED TRAILER RENTAL CLERK, INTACT AND PATENT. NO SIGNS AND SYMPTOMS OF DISTRESS NOTED. HOB UP. BED SIDE RAILS UP X1. ON LOW BED POSITION, LOCKED. ER TO EVALUATE PT.
--- NOTE | 2019-02-11 11:36 | NUR ---
Patient BIBA BLS, transferred to bed 10. RN evaluating patient at bedside.
--- NOTE | 2019-02-11 11:36 | NUR ---
IMELDA FROM [facility] FOR G TUBE REPLACEMENT. PER EMS, G-TUBE CAME OFF UNKNOWN TIME LAST NIGHT. PT NON VERBAL, ON O2 2 LPM. NEUROLOGICALLY AT BASE LINE. IV LEFT HAND 18 G INITIATED SPRAY GUN SIZER, DATED 02/10/19, INTACT AND PATENT. NO SIGNS AND SYMPTOMS OF DISTRESS NOTED. HOB UP. BED SIDE RAILS UP X1. ON LOW BED POSITION, LOCKED. ER TO EVALUATE PT.
[2019-02-11 11:41] VITALS: BP 98/47
--- NOTE | 2019-02-11 11:50 | NUR ---
DR MOORE AT BEDSIDE FOR PT EVALUATION
[2019-02-11] MEDS ORDERED: ONDANSETRON 4 MG/2 ML VIAL IM/IVP PRN (12:15)
[2019-02-11] MEDS ORDERED: NACL 0.9% 1,000 ML IV SCH (12:15)
--- NOTE | 2019-02-11 12:21 | NUR ---
tool repair technician at bedside.
--- NOTE | 2019-02-11 12:52 | NUR ---
IV INITIATED TO RIGHT HAND WITH 22G, INTACT AND PATENT. OBTAINED BLOOD DRAW ORDERED, SENT TO LAB.
[2019-02-11 13:05] VITALS: BP 142/61
--- NOTE | 2019-02-11 13:05 | NUR ---
Patient will be admitted to care of DR BENITEZ. Admited to TELE. Will go to room 122 B. Belongings list completed. Report to SHELBY COFFEY.
--- NOTE | 2019-02-11 13:05 | NUR ---
PATIENT ARRIVED UNIT VIA [facility] ACCOMPANIED BY ER NURSE. TRANSFERRED PATIENT FROM [facility] TO BED AND POSITIONED PATIENT COMFORTABLY. PATIENT IS AAOX1. PATIENT IS APHASIC, ABLE TO LOCALIZE PAIN. FLACC 0. RESPIRATION EVEN AND UNLABORED ON 2LPM VIA NC. NO SIGNS OF DISTRESS NOTED. IV ON L HAND 18 G AND R HAND 22G, CLEAN AND INTACT, NOT INFUSING AT THIS TIME. G-TUBE STOMA ON ABDOMEN NOTED, OTHERWISE SKIN CLEAN AND DRY. BOTH ARMS ARE RIGID, PLACED TOWELS UNDER ARMS TO RELEASE PRESSURE. PATIENT IS INCONTINENT AND BEDREST. ORIENTED PATIENT TO THE ROOM, AND EDUCATED PATIENT ON HOW TO USE THE CALL LIGHT FOR ANY ASSISTANCE, BED REMOTE, TELEPHONE, TV, LIGHT AND BATHROOM. PATIENT UNABLE TO COMPREHEND AND REINFORCEMENT NEEDED. VITAL SIGNS TAKEN AND MRSA COLLECTED. TELE MONITOR ATTACHED. CHANGED PATIENT INTO YELLOW GOWN, SOCKS, APPLIED WRIST BAND, AND POSTED SIGN. SAFETY MEASURES IN PLACE. BED ALARM ACTIVATED. BED IN LOW POSITION AND CALL LIGHT WITHIN REACH.
[2019-02-11 13:09] LABS: BASOPHILS # (AUTO) 0.1 K/uL (0.00-0.22); BASOPHILS % (AUTO) 0.8 % (0.0-2.0); EOSINOPHILS # (AUTO) 0.3 K/uL (0-0.4); EOSINOPHILS % (AUTO) 4.4 % (0.0-4.0); HEMATOCRIT 34.3 % (36-48); HEMOGLOBIN 11.1 g/dL (12.0-16.0); LYMPHOCYTES # (AUTO) 1.7 K/uL (2.5-16.5); LYMPHOCYTES % (AUTO) 23.3 % (20.5-51.1); MEAN CORPUSCULAR HEMOGLOBIN 31 pg (27-31); MEAN CORPUSCULAR HGB CONC 32 g/dL (33-37); MEAN CORPUSCULAR VOLUME 94.2 fL (80-94); MONOCYTES # (AUTO) 0.5 K/uL (0.8-1.0); MONOCYTES % (AUTO) 6.9 % (1.7-9.3); NEUTROPHILS # (AUTO) 4.6 K/uL (1.8-7.7); NEUTROPHILS % (AUTO) 64.6 % (42.2-75.2); PLATELET COUNT (AUTO) 184 K/uL (140-450); RED BLOOD CELL COUNT(AUTO) 3.64 MIL/uL (4.20-5.40); WHITE BLOOD COUNT (AUTO) 7.1 K/uL (4.8-10.8)
[2019-02-11] MEDS ORDERED: ACETAMINOPHEN 650 MG/20.3 ML UDC GT PRN (13:30)
[2019-02-11] MEDS ORDERED: GLUCAGON 1 MG VIAL IM PRN (13:30)
[2019-02-11 13:32] LABS: ANION GAP 9.1 (8-16); CARBON DIOXIDE 32.2 mmol/L (21-32); CHLORIDE 107 mmol/L (98-107); CREATININE 0.6 mg/dL (0.6-1.3); GLUCOSE 142 mg/dL (74-106); POTASSIUM 4.3 mmol/L (3.5-5.1); SODIUM SERUM 144 mmol/L (136-145); UREA NITROGEN, BLOOD 20 mg/dL (7-18)
[2019-02-11 13:35] LABS: PROTHROMBIN TIME 9.8 secs (10.8-13.4)
[2019-02-11] MEDS ORDERED: DEXTROSE 50% 50 ML SYR IVP PRN (13:40)
[2019-02-11 13:49] LABS: MAGNESIUM 2.2 mg/dL (1.8-2.4); PHOSPHORUS 3.5 mg/dL (2.5-4.9); THYROID STIMULATING HORMONE 0.83 uIU/mL (0.34-3.74)
--- NOTE | 2019-02-11 15:20 | NUR ---
PATIENT IS RESTING ON BED. RESPIRATION EVEN AND UNLABORED ON 2LPM VIA NC. NO SIGNS OF DISTRESS NOTED. TELE MONITOR ATTACHED. SAFETY MEASURES IN PLACE. BED IN LOW POSITION AND CALL LIGHT WITHIN REACH.
[2019-02-11 16:00] VITALS: BP 135/59
[2019-02-11] MEDS: DEXT 5% / NACL 0.45% 1,000 ML IV SCH (16:38)
[2019-02-11] MEDS: BLOOD GLUCOSE MONITORING 1 DEV DEV FS SCH ×2 (16:39→21:07)
--- NOTE | 2019-02-11 17:35 | NUR ---
DR NEVILLE ASSESSED AND INSERTED THE G-TUBE AT BEDSIDE. NO SIGNS OF DISTRESS NOTED. TELE MONITOR ATTACHED. SAFETY MEASURES IN PLACE. BED IN LOW POSITION AND CALL LIGHT WITHIN REACH.
[2019-02-11 18:52] LABS: ALBUMIN 3.4 g/dL (3.4-5.0); ANION GAP 12.4 (8-16); ASPARTATE AMINOTRANSFERASE 15 U/L (15-37); CARBON DIOXIDE 29.8 mmol/L (21-32); CHLORIDE 105 mmol/L (98-107); CREATININE 0.7 mg/dL (0.6-1.3); GLUCOSE 147 mg/dL (74-106); POTASSIUM 4.2 mmol/L (3.5-5.1); SODIUM SERUM 143 mmol/L (136-145); TOTAL BILIRUBIN 0.5 mg/dL (0.0-1.0); UREA NITROGEN, BLOOD 18 mg/dL (7-18)
--- NOTE | 2019-02-11 19:20 | NUR ---
ENDORSED PATIENT AT BEDSIDE TO AIRLINE TRANSPORT PILOT NURSE FOR CONTINUITY OF CARE. PATIENT IS IN STABLE CONDITION. NO SIGNS OF DISTRESS NOTED. TELE MONITOR ATTACHED. SAFETY MEASURES IN PLACE. BED IN LOW POSITION AND CALL LIGHT WITHIN REACH.
--- NOTE | 2019-02-11 19:21 | NUR ---
RECEIVED REPORT FROM RADHA COFFEY. NO DISTRESS. NO SOB. NC @2L. A/O X0. APHASIC. DISCUSSED PLAN OF CARE. REINFORCEMENT NEEDED. APHASIC. VITALS WNL. L HAND 18G. INFUSING D5 1/2 NS @60. PATENT AND INTACT. SKIN INTACT. G TUBE IN PLACE. PATENT AND INTACT. INCONTINENT. STANDARD PREC IN PLACE. FALL RISK PROTOCOL IN PLACE. BED IN LOWEST POSITION. CALL LIGHT WITHIN REACH. WILL CONTINUE TO MONITOR.
[2019-02-11 20:00] VITALS: BP 142/32
--- NOTE | 2019-02-11 20:14 | NUR ---
X RAY AT BEDSIDE
[2019-02-11] MEDS: SIMVASTATIN 20 MG TAB GT SCH (21:08)
[2019-02-11] MEDS: INSULIN LISPRO SLIDING SCALE 100 UNITS/ML VIAL SUBQ PRN (21:14)
[2019-02-11] MEDS: INSULIN LANTUS 100 UNITS/ML 10 ML VIAL SUBQ SCH (21:17)
--- NOTE | 2019-02-11 22:00 | NUR ---
NO SIGNS OF DISTRESS. NO SOB. FLACC 0. BED IN LOWEST POSITION. CALL LIGHT WITHIN REACH. WILL CONTINUE TO MONITOR.
[2019-02-12] VITALS: BP 116/45
--- NOTE | 2019-02-12 00:33 | NUR ---
PERFORMING FARZANA CARE AND CHANGE. ASSIST OF ADJUNCT WRITING INSTRUCTOR. TOLERATED WELL. FLACC 0. VITALS WNL. WILL CONTINUE TO MONITOR.
--- NOTE | 2019-02-12 02:00 | NUR ---
PT SLEEPING. NO SIGNS OF DISTRESS. WILL CONTINUE TO MONITOR. BED IN LOWEST POSITION. CALL LIGHT WITHIN REACH.
[2019-02-12 04:00] VITALS: BP 110/50
--- NOTE | 2019-02-12 04:00 | NUR ---
PT IS RESTING IN BED. NO SIGNS OF DISTRESS. VITALS ARE WNL. TOLERATED WELL. WILL CONTINUE TO MONITOR.
--- NOTE | 2019-02-12 06:00 | NUR ---
GARGLING SOUND HEARD. BROWN LIQUID COMING FROM PT MOUTH. STRONG ODOR. WILL MAKE DR AWARE.
--- NOTE | 2019-02-12 06:20 | NUR ---
MADE DR AWARE OF PT SITUATION. DR ASSESSED PT. AND ORDERED FOR NG TUBE INSERTION. WITH INTERMITTENT SUCTION. WILL INSERT AND CONTINUE TO MONITOR.
[2019-02-12 06:21] LABS: CREATININE 0.9 mg/dL (0.6-1.3); GLUCOSE 327 mg/dL (74-106); UREA NITROGEN, BLOOD 19 mg/dL (7-18)
[2019-02-12 06:26] LABS: CARBON DIOXIDE 21.7 mmol/L (21-32); CHLORIDE 104 mmol/L (98-107); POTASSIUM 3.3 mmol/L (3.5-5.1); SODIUM SERUM 143 mmol/L (136-145)
[2019-02-12 06:27] LABS: CHOL/HDL RATIO 3.1 (1-4.5)
--- NOTE | 2019-02-12 06:30 | NUR ---
NG TUBE PLACED ON INTERMITTENT SUCTION PER DR ORDER. X RAY WILL CONFIRM PLACEMENT.
[2019-02-12 06:43] LABS: HEMOGLOBIN 11.7 g/dL (12.0-16.0); MEAN CORPUSCULAR HEMOGLOBIN 30 pg (27-31); MEAN CORPUSCULAR HGB CONC 32 g/dL (33-37); MEAN CORPUSCULAR VOLUME 96.2 fL (80-94); PLATELET COUNT (AUTO) 292 K/uL (140-450); RED BLOOD CELL COUNT(AUTO) 3.84 MIL/uL (4.20-5.40); RED CELL DISTRIBUTION WIDTH 16.4 % (11.6-13.7); WHITE BLOOD COUNT (AUTO) 16.6 K/uL (4.8-10.8)
[2019-02-12] MEDS: BLOOD GLUCOSE MONITORING 1 DEV DEV FS SCH ×4 (06:45→20:47)
[2019-02-12] MEDS: INSULIN LISPRO SLIDING SCALE 100 UNITS/ML VIAL SUBQ PRN ×3 (06:48→17:03)
--- NOTE | 2019-02-12 06:50 | NUR ---
X RAY AT BEDSIDE.
[2019-02-12 07:00] LABS: ANION GAP 20.6 (8-16)
--- NOTE | 2019-02-12 07:15 | NUR ---
RECEIVED BEDSIDE REPORT FROM ELECTRICAL CALIBRATOR NURSE FOR CONTINUITY OF CARE. PATIENT IS AAOX0. PATIENT IS APHASIC, ABLE TO LOCALIZE PAIN. FLACC 0. RESPIRATION EVEN AND UNLABORED ON 2LPM VIA NC. NO SIGNS OF DISTRESS NOTED. IV ON L HAND 18 G, CLEAN AND DRY, INFUSING PER MD ORDER. R HAND 22G, CLEAN AND INTACT, SL. G-TUBE IN PLACE. NOT IN USE AT THIS TIME, PENDING FOR CONFIRM. BOTH ARMS ARE RIGID, PLACED TOWELS UNDER ARMS TO RELEASE PRESSURE. PATIENT IS INCONTINENT AND BEDREST. NGT IN PLACE, AND PLACE ON INTERMITTENT SUCTION, BROWN FLUID SUCTION OUT AT THIS TIME. TELE MONITOR IN PLACE. SAFETY MEASURES IN PLACE. BED ALARM ACTIVATED. BED IN LOW POSITION AND CALL LIGHT WITHIN REACH.
--- NOTE | 2019-02-12 07:16 | NUR ---
ENDORSED PT TO DAYSHIFT SHELBY COFFEY. PT IN STABLE CONDITION.
[2019-02-12 07:46] LABS: LYMPHOCYTES % (MANUAL) 7 % (20-46); MONOCYTES % (MANUAL) 4 % (5-12)
[2019-02-12 08:00] VITALS: BP 139/69
--- NOTE | 2019-02-12 08:44 | NUR ---
PATIENT HAS BEEN SCREENED AND CATEGORIZED HIGH NUTRITION RISK. PATIENT WILL BE SEEN WITHIN 1-2 DAYS OF ADMISSION. 02/12/19-02/13/[address]
[2019-02-12] MEDS ORDERED: DOCUSATE 100 MG/10 ML UDC GT SCH (09:00)
[2019-02-12] MEDS: FERROUS SULFATE 300 MG/5 ML UDC GT SCH (09:36)
[2019-02-12] MEDS: DEXT 5% / NACL 0.45% 1,000 ML IV SCH (09:37)
--- NOTE | 2019-02-12 09:38 | NUR ---
ADMINISTERED MEDS VIA NGT, PATIENT TOLERATED WELL. WILL HOLD NGT SUCTION FOR AN HOUR. PATIENT AWAKE WITH EYES OPEN. RESPIRATION EVEN AND UNLABORED ON 2LPM VIA NC. NO SIGNS OF DISTRESS NOTED. TELE MONITOR ATTACHED. SAFETY MEASURES IN PLACE. BED IN LOW POSITION AND CALL LIGHT WITHIN REACH. BED ALARM ACTIVATED.
--- NOTE | 2019-02-12 11:30 | NUR ---
OBTAINED VERBAL CONSENT FROM PATIENT'S DAUGHTER ERUM FOR EGD, AND VERIFIED WITH TITLE ATTORNEY. DR FOLEY ANSWERED ALL ERUM'S QUESTIONS AND ERUM WAS AWARE OF THE PROCEDURE.
--- NOTE | 2019-02-12 11:41 | NUR ---
PATIENT RESTING ON BED. EVEN AND UNLABORED CHEST RINSES ON 2LPM VIA NC. SAFETY MEASURES IN PLACE. TELE MONITOR IN PLACE. BED IN LOW POSITION AND CALL WITHIN REACH. BED ALARM ACTIVATED.
[2019-02-12 12:00] VITALS: BP 145/56
--- NOTE | 2019-02-12 12:16 | NUR ---
02/12/19 RD INITIAL ASSESSMENT COMPLETED PLEASE REFER TO NUTRITION ASSESSMENT UNDER CARE ACTIVITY FOR ESTIMATED NUTRITIONAL NEEDS. 1. WHEN PATIENT IS MEDICALLY STABLE CONSIDER TUBE FEEDING WITH GLUCERNA 1.2 AT GOAL RATE 50 ML/HR X 24 HOURS. START AT 25 ML/HR AND ADVANCE BY 25 ML/HR. -THIS WILL PROVIDE 1200 ML, 1440 KCAL, AND 72 GM OF PROTEIN 2. RECOMMEND FREE WATER FLUSH OF [address] TO FOLLOW-UP 2-3 DAYS, HIGH RISK EDWAR [address]SON RD
[2019-02-12] MEDS: PIPERACILLIN/TAZOBACTAM 3.375 GM in DEXTROSE 5% 50 ML IV SCH ×2 (12:55→18:10)
--- NOTE | 2019-02-12 13:20 | NUR ---
PATIENT AWAKE WITH EYES OPEN. FLACC 0. RR EVEN AND UNLABORED ON 2LPM VIA NC. NGT IS ON INTERMITTER SUCTIONING. NO SIGNS OF DISTRESS NOTED. SAFETY MEASURES IN PLACE. BED IN LOW POSITION AND CALL LIGHT WITHIN REACH. BED ALARM ACTIVATED.
[2019-02-12] MEDS ORDERED: fentaNYL 0.05 MG/ML VIAL ONE (14:43)
[2019-02-12] MEDS ORDERED: diphenhydrAMINE 50 MG/ML VIAL ONE (14:44)
[2019-02-12] MEDS ORDERED: MIDAZOLAM 2 MG/2 ML VIAL ONE (14:44)
--- NOTE | 2019-02-12 14:50 | NUR ---
PATIENT OFF UNIT TO OR AND ACCOMPANIED WITH OR NURSE ROMO. PATIENT IN STABLE CONDITION.
[2019-02-12] MEDS ORDERED: MIDAZOLAM 2 MG/2 ML VIAL IVP ONE (15:15)
[2019-02-12] MEDS ORDERED: fentaNYL 0.05 MG/ML VIAL IVP ONE (15:15)
[2019-02-12] MEDS ORDERED: MAGNESIUM CITRATE 300 ML BTL PO SCH (15:26)
--- NOTE | 2019-02-12 15:30 | NUR ---
PATIENT CAME BACK FROM OR. VITAL SIGNS TAKEN; BP 128/53, PULSE 75, SPO2 97% ON 2LPM VIA NC, RR 18, FLACC 0. PATIENT IS RESTING ON BED AT THIS TIME. NO SIGNS OF DISTRESS NOTED. SAFETY MEASURES IN PLACE. BED IN LOW POSITION AND CALL LIGHT WITHIN REACH. BED ALARM ACTIVATED.
--- NOTE | 2019-02-12 15:54 | NUR ---
IV ON R HAND INFILTRATED, DC IV AND CANNULA INTACT, MINIMAL BLEEDING ON IV SITE. CONTINUED INFUSING ON IV SITE R HAND 22G. PATIENT IS RESTING ON BED AT THIS TIME. NO SIGNS OF DISTRESS NOTED. SAFETY MEASURES IN PLACE. BED IN LOW POSITION AND CALL LIGHT WITHIN REACH. BED ALARM ACTIVATED.
[2019-02-12 16:00] VITALS: BP 135/60
--- NOTE | 2019-02-12 16:15 | NUR ---
CALLED [facility] ON REGARDS OF PATIENT'S G-TUBE FORMULA, LEFT A MESSAGE. AWAITING FOR FORMULA TO START G-TUBE FEEDING.
[2019-02-12] MEDS: METOCLOPRAMIDE 10 MG/10 ML SYRP UDC GT SCH (16:58)
--- NOTE | 2019-02-12 17:45 | NUR ---
PATIENT'S DAUGHTER CARLA AND SHAYE ARE AT BEDSIDE. DISCUSSED PLAN OF CARE WITH DAUGHTERS, BOTH VERBALIZED UNDERSTANDING. NO SIGNS OF DISTRESS NOTED. SAFETY MEASURES IN PLACE. BED IN LOW POSITION AND CALL LIGHT WITHIN REACH. BED ALARM ACTIVATED.
--- NOTE | 2019-02-12 18:20 | NUR ---
PATIENT RESTING ON BED. RESPIRATION EVEN AND UNLABORED ON 2LMP VIA NC. NO SIGNS OF DISTRESS NOTED. COLLECTED URINE VIA CLEAN CATCH AND DELIVERED TO LAB. SAFETY MEASURES IN PLACE. BED IN LOW POSITION AND CALL LIGHT WITHIN REACH. BED ALARM ACTIVATED.
[2019-02-12 19:30] LABS: APPEARANCE,URINE HAZY (CLEAR); BILIRUBIN,URINE NEGATIVE (NEGATIVE); BLOOD, URINE 1+ (NEGATIVE); COLOR,URINE YELLOW (YELLOW); LEUKOCYTE ESTERASE ,URINE 1+ (NEGATIVE); NITRITE, URINE NEGATIVE (NEGATIVE); UGLUCOSE NEGATIVE (NEGATIVE)
--- NOTE | 2019-02-12 19:30 | NUR ---
ENDORSED PATIENT AT BEDSIDE TO PIG LEAD MELTER HELPER NURSE FOR CONTINUITY OF CARE. PATIENT IS RESTING ON BED AT THIS TIME. EVEN AND UNLABORED CHEST RISES NOTED. NO SIGNS OF DISTRESS NOTED. PATIENT IS IN STABLE CONDITION. SAFETY MEASURE IN PLACE. BED IN LOW POSITION AND CALL LIGHT WITHIN REACH.
--- NOTE | 2019-02-12 19:31 | NUR ---
RECEIVED BESIDE REPORT FROM RADHA COFFEY. PT A/O X0. APHASIC. OPENS EYES TO NAME. DISCUSSED PLAN OF CARE. REINFORCEMENT NEEDED. NC @2L. NO SIGNS OF DISTRESS. SKIN INTACT. G TUBE IN PLACE. PATENT AND INTACT. IV L HAND 22G SALINE LOCK. STD PRECAUTIONS. FALL RISK PROTOCAL IN PLACE. BED IN LOWEST POSITION. CALL LIGHT WITHIN REACH. WILL CONTINUE TO MONITOR.
[2019-02-12 19:38] LABS: BARBITURATE, URINE NEG. ng/ml (NEG <=200); BENZODIAZEPINE, URINE POS. ng/mL (NEG <=200); CANNABINOID, URINE NEG. ng/mL (NEG <=50); COCAINE, URINE NEG. ng/mL (NEG <=300); OPIATE, URINE NEG. ng/mL (NEG <=2000); PHENCYCLIDINE SCREEN,URINE NEG. ng/mL (NEG <=25)
[2019-02-12 19:44] LABS: YEAST,URINE Few /HPF (None Seen)
--- NOTE | 2019-02-12 20:30 | NUR ---
STARTED G TUBE FEEDING PER DR ORDER. RATE 25. FLUSH H20 120 Q6H. PATENT AND INTACT. WILL CONTINUE TO MONITOR.
[2019-02-12] MEDS: INSULIN LANTUS 100 UNITS/ML 10 ML VIAL SUBQ SCH (20:53)
[2019-02-12] MEDS: SIMVASTATIN 20 MG TAB GT SCH (20:54)
--- NOTE | 2019-02-12 21:30 | NUR ---
RATE INCREASED TO 50ML/HR GOAL. TOLERATED WELL. WILL CONTINUE TO MONITOR.
--- NOTE | 2019-02-12 22:56 | NUR ---
SLEEPING IN BED. EVEN CHEST RISE. NO SOB. UNLABORED BREATHING. EASILY AROUSABLE. BED IN LOWEST POSITION. CALL LIGHT WITHIN REACH. WILL CONTINUE TO MONITOR.
--- NOTE | 2019-02-12 23:26 | NUR ---
PERFORMED FARZANA CARE AND LINEN CHANGE. ASSIST OF HARNESS INSTALLER. TOLERATED WELL. NO SIGNS OF DISTRESS. FEEDING RESUMED AFTER CARE WAS PERFORMED. WILL CONTINUE TO MONITOR.
[2019-02-13] VITALS: BP 129/64
[2019-02-13] MEDS: PIPERACILLIN/TAZOBACTAM 3.375 GM in DEXTROSE 5% 50 ML IV SCH ×4 (00:08→17:31)
--- NOTE | 2019-02-13 01:30 | NUR ---
SLEEPING IN BED. UNLABORED BREATHING. EVEN CHEST RISE. NO SOB. NO PAIN. FLACC 0. BED IN LOWEST POSITION. WILL CONTINUE TO MONITOR.
--- NOTE | 2019-02-13 02:44 | NUR ---
PERFORMED FARZANA CARE. TOLERATED WELL. NO SIGNS OF DISTRESS. FEEDING RESUMED. WILL CONTINUE TO MONITOR.
--- NOTE | 2019-02-13 04:30 | NUR ---
PT SLEEPING. NO SIGNS OF DISTRESS. EVEN UNLABORED BREATHING. BED IN LOWEST POSITION. G TUBE STILL INFUSING AT 50 RATE GOAL. WILL CONTINUE TO MONITOR.
--- NOTE | 2019-02-13 06:00 | NUR ---
PERFORMED FARZANA CARE WITH ASSIST OF BREADING MACHINE TENDER. REPOSITIONED PT. TOLERATED WELL. NO SIGNS OF DISTRESS. WILL CONTINUE TO MONITOR.
[2019-02-13 06:03] LABS: BASOPHILS % (AUTO) 0.1 % (0.0-2.0); EOSINOPHILS % (AUTO) 0.2 % (0.0-4.0); HEMOGLOBIN 10.1 g/dL (12.0-16.0); LYMPHOCYTES % (AUTO) 15.5 % (20.5-51.1); MEAN CORPUSCULAR HEMOGLOBIN 31 pg (27-31); MEAN CORPUSCULAR HGB CONC 33 g/dL (33-37); MEAN CORPUSCULAR VOLUME 93.5 fL (80-94); MONOCYTES # (AUTO) 0.8 K/uL (0.8-1.0); MONOCYTES % (AUTO) 6.4 % (1.7-9.3); NEUTROPHILS # (AUTO) 9.8 K/uL (1.8-7.7); NEUTROPHILS % (AUTO) 77.8 % (42.2-75.2); PLATELET COUNT (AUTO) 239 K/uL (140-450); RED BLOOD CELL COUNT(AUTO) 3.31 MIL/uL (4.20-5.40); RED CELL DISTRIBUTION WIDTH 16.1 % (11.6-13.7); WHITE BLOOD COUNT (AUTO) 12.7 K/uL (4.8-10.8)
[2019-02-13] MEDS: BLOOD GLUCOSE MONITORING 1 DEV DEV FS SCH ×4 (06:13→21:00)
[2019-02-13] MEDS: INSULIN LISPRO SLIDING SCALE 100 UNITS/ML VIAL SUBQ PRN ×4 (06:17→21:59)
[2019-02-13] MEDS: METOCLOPRAMIDE 10 MG/10 ML SYRP UDC GT SCH ×3 (06:22→17:24)
[2019-02-13] MEDS ORDERED: LANSOPRAZOLE 30 MG CAPDR PO SCH (06:30)
--- NOTE | 2019-02-13 06:47 | NUR ---
WILL ENDORSE PT TO DAYSHIFT RN. PT IN STABLE CONDITION. RESTING IN BED. NO SIGNS OF DISTRESS. UNLABORED BREATHING. NO SOB. DENIES PAIN. BED IN LOWEST POSITION. CALL LIGHT WITHIN REACH.
[2019-02-13 07:01] LABS: ANION GAP 11.1 (8-16); CARBON DIOXIDE 30.3 mmol/L (21-32); CHLORIDE 108 mmol/L (98-107); CREATININE 0.9 mg/dL (0.6-1.3); GLUCOSE 190 mg/dL (74-106); POTASSIUM 3.4 mmol/L (3.5-5.1); SODIUM SERUM 146 mmol/L (136-145); UREA NITROGEN, BLOOD 21 mg/dL (7-18)
--- NOTE | 2019-02-13 07:14 | NUR ---
RECEIVED BED SIDE REPORT FROM BEE PRODUCER RN. PT SLEEPING, ON G TUBE FEEDING GLUCERNA 1.2 RUNNING AT 50CC/HR. WILL CONTINUE TO MONITOR
[2019-02-13 07:16] LABS: MAGNESIUM 2.5 mg/dL (1.8-2.4); PHOSPHORUS 2.5 mg/dL (2.5-4.9)
[2019-02-13] MEDS ORDERED: POTASSIUM CHLORIDE 20% 40 MEQ/15 ML UDC GT SCH (08:37)
[2019-02-13] MEDS ORDERED: LANSOPRAZOLE 30 MG CAPDR GT SCH (08:38)
[2019-02-13] MEDS ORDERED: LACTULOSE 20 GM/30 ML UDC PO SCH (09:00)
[2019-02-13] MEDS: LACTULOSE 20 GM/30 ML UDC GT SCH (09:04)
[2019-02-13] MEDS: FERROUS SULFATE 300 MG/5 ML UDC GT SCH (09:04)
--- NOTE | 2019-02-13 09:16 | NUR ---
PT APHASIC, UNBALE TO ASSESS LOC. LUNGS CLEAR, ON 2L NC O2 SAT 100%, PT ON ASPIRATION PRECAUTIONS WITH HOB ELEVATED. GLUCERNA 1.2 RUNNING 50CC/HR WITH FWF 200CC Q6H. 0CC GASTRIC RESIDUAL. ABDOMEN NON-DISTENDED, BOWEL SOUNDS ACTIVE, WILL CONTINUE TO MONITOR
[2019-02-13 10:55] VITALS: BP 118/50
--- NOTE | 2019-02-13 13:22 | NUR ---
REPORTED TO RESIDENTS BLOOD CULTURE WHICH CAME BACK POSITIVE FOR GRAM + COCCI. NO CHANGE IN ORDERS.
[2019-02-13 13:47] LABS: ANION GAP 14.1 (8-16); CARBON DIOXIDE 29.2 mmol/L (21-32); CHLORIDE 109 mmol/L (98-107); CREATININE 1.1 mg/dL (0.6-1.3); GLUCOSE 243 mg/dL (74-106); POTASSIUM 4.3 mmol/L (3.5-5.1); SODIUM SERUM 148 mmol/L (136-145); UREA NITROGEN, BLOOD 24 mg/dL (7-18)
[2019-02-13] MEDS ORDERED: VANCOMYCIN PER PHARMACY MC PRN (14:00)
--- NOTE | 2019-02-13 15:30 | NUR ---
DAUGHTER AT BEDSIDE WITH PT. WILL CONTINUE TO MONITOR
[2019-02-13 16:32] VITALS: BP 109/51
[2019-02-13] MEDS: VANCOMYCIN 1,000 MG in DEXTROSE 5% 250 ML IV SCH (17:24)
--- NOTE | 2019-02-13 17:30 | NUR ---
GASTRIC RESIDUAL 10CC. PT MAKING GARGLING NOISES. SUCTIONED PT'S MOUTH. ABDOMEN NON-DISTENDED. NOTIFIED . NO CHANGE IN ORDERS.
--- NOTE | 2019-02-13 18:54 | NUR ---
WILL ENDORSE PT TO NURSE GYNECOLOGY RN. PT STABLE.
--- NOTE | 2019-02-13 19:27 | NUR ---
RECEIVED REPORT FORM TERRELL RYAN DAYSHIFT NURSE AT BEDSIDE FOR CONTINUITY IF CARE, PT IN STABLE CONDITION.
--- NOTE | 2019-02-13 20:00 | NUR ---
PT IN LOW BED WITH ALL FALLS PRECAUTIONS IN PLACE. PT HAS GT RUNNING GLUCERNA 1.2 AT 50CC/HR. PT HAS 2 LITERS VIA N/C. HER SKIN IS INTACT. PT HAS IV SITE ON LEFT HAND FLUSHED PATENT. PT GT INTACT WITH NO RESIDUAL NOTED. PT IS AOX1, ORAL CARE PROVIDED TO PT. V/S FOLLOWS T 98.8 P 65 R 18 B/P 96/41 02 99% WITH 2 LITERS VIA N/C.
--- NOTE | 2019-02-13 21:00 | NUR ---
PT GIVEN ZOCOR VIA GT TUBE SITE. FINGERSTICK IS 244. 4 UNITS OF HUMALOG COVERAGE PROVIDED.
[2019-02-13] MEDS: SIMVASTATIN 20 MG TAB GT SCH (21:34)
[2019-02-13] MEDS: INSULIN LANTUS 100 UNITS/ML 10 ML VIAL SUBQ SCH (22:02)
[2019-02-14] VITALS: BP 96/41
[2019-02-14] MEDS: PIPERACILLIN/TAZOBACTAM 3.375 GM in DEXTROSE 5% 50 ML IV SCH ×3 (00:21→11:44)
--- NOTE | 2019-02-14 00:30 | NUR ---
PT RESIDUAL FROM GT WAS 180. GT FEEDING STOPPED FOR NOW DUE TO RESIDUAL. V/S A FOLLOWS T 98.4 P 86 R 18 B/P 96/48 02 98% WITH 2 LITERS VIA N/C. MOUTH CARE ALSO PROVIDED. ALL FALLS AND ASPIRATION PROTOCOL IN PLACE.
--- NOTE | 2019-02-14 01:30 | NUR ---
PT TURNED AND REPOSITIONED NO S/S OF PAIN OR DISTRESS NOTED. RESIDUAL 100. WILL CONTINUE TO HOLD FEEDING.
--- NOTE | 2019-02-14 04:30 | NUR ---
PT FINGERSTICK IS IN RANGE (146) AND NO HUMALOG COVERAGE NEEDED. NO RESIDUAL NOTED IN GT. FEEDING GLUCERNA IS RESTARTED.
[2019-02-14 06:38] LABS: ANION GAP 11.5 (8-16); CARBON DIOXIDE 31.2 mmol/L (21-32); CHLORIDE 109 mmol/L (98-107); GLUCOSE 109 mg/dL (74-106); POTASSIUM 3.7 mmol/L (3.5-5.1); SODIUM SERUM 148 mmol/L (136-145); UREA NITROGEN, BLOOD 23 mg/dL (7-18)
[2019-02-14] MEDS: BLOOD GLUCOSE MONITORING 1 DEV DEV FS SCH ×3 (06:38→16:44)
[2019-02-14] MEDS: METOCLOPRAMIDE 10 MG/10 ML SYRP UDC GT SCH ×3 (06:43→16:30)
[2019-02-14 06:46] LABS: MAGNESIUM 2.5 mg/dL (1.8-2.4); PHOSPHORUS 2.9 mg/dL (2.5-4.9)
[2019-02-14 06:51] LABS: BASOPHILS # (AUTO) 0.1 K/uL (0.00-0.22); BASOPHILS % (AUTO) 0.5 % (0.0-2.0); EOSINOPHILS # (AUTO) 0.3 K/uL (0-0.4); EOSINOPHILS % (AUTO) 3.1 % (0.0-4.0); HEMATOCRIT 29.8 % (36-48); HEMOGLOBIN 9.5 g/dL (12.0-16.0); LYMPHOCYTES # (AUTO) 3.1 K/uL (2.5-16.5); LYMPHOCYTES % (AUTO) 27.3 % (20.5-51.1); MEAN CORPUSCULAR HEMOGLOBIN 30 pg (27-31); MEAN CORPUSCULAR HGB CONC 32 g/dL (33-37); MEAN CORPUSCULAR VOLUME 94.7 fL (80-94); MONOCYTES # (AUTO) 0.9 K/uL (0.8-1.0); MONOCYTES % (AUTO) 7.8 % (1.7-9.3); NEUTROPHILS % (AUTO) 61.3 % (42.2-75.2); PLATELET COUNT (AUTO) 221 K/uL (140-450); RED BLOOD CELL COUNT(AUTO) 3.15 MIL/uL (4.20-5.40); RED CELL DISTRIBUTION WIDTH 15.9 % (11.6-13.7); WHITE BLOOD COUNT (AUTO) 11.4 K/uL (4.8-10.8)
--- NOTE | 2019-02-14 07:20 | NUR ---
REPORT GIVEN TO ISABELL RYAN DAYSHIFT NURSE AT BEDSIDE FOR CONTINUITY OF CARE, PT IN STABLE CONDITION.
[2019-02-14 08:00] VITALS: BP 99/60
[2019-02-14] MEDS ORDERED: FLUC100T1 GT (08:59)
[2019-02-14] MEDS ORDERED: AMOX-1000 GT (08:59)
[2019-02-14] MEDS ORDERED: FLUCONAZOLE 100 MG TAB GT SCH (09:00)
[2019-02-14] MEDS: LACTULOSE 20 GM/30 ML UDC GT SCH (10:05)
[2019-02-14] MEDS: FERROUS SULFATE 300 MG/5 ML UDC GT SCH (10:06)
--- NOTE | 2019-02-14 10:15 | NUR ---
ADMINISTERED MORNING MEDS VIA FEMA [employer]. PT TOLERATED WELL. WILL CONTINUE TO MONITOR PT.
[2019-02-14] MEDS: INSULIN LISPRO SLIDING SCALE 100 UNITS/ML VIAL SUBQ PRN (11:41)
--- NOTE | 2019-02-14 11:45 | NUR ---
REGLAN GIVEN VIA GTUBE. PT TOLERATED WELL.
--- NOTE | 2019-02-14 15:29 | NUR ---
PER EDWINA FROM [facility], PATIENT WILL GO TO ROOM 14C UNDER DR FABRIZIO BENITEZ
--- NOTE | 2019-02-14 15:50 | NUR ---
CONTACTED PATIENT'S DAUGHTER ERUM MULLEN AT [phone], SHE STATED THAT SHE IS WILLING TO PAY THE TRANSPORT FEE BUT NOT UNTIL 8PM. SHE ALSO STATED THAT SHE WILL CALL HER SISTER IF SHE CAN COME IN EARLIER THAT 8PM. SHE STATED THAT SHE WILL CALL ME BACK TO CONFIRM. Addendum: 02/14/19 at 1555 by Daphney Vazquez CM I ALSO INFORMED HER THAT PATIENT WILL BE RETURNING BACK TO [facility] TODAY.
[2019-02-14 16:00] VITALS: BP 100/33
[2019-02-14] MEDS: VANCOMYCIN 1,000 MG in DEXTROSE 5% 250 ML IV SCH (16:45)
--- NOTE | 2019-02-14 16:50 | NUR ---
ADMINISTERED VANCO. PT TOLERATED WELL.
--- NOTE | 2019-02-14 17:13 | NUR ---
REPORT GIVEN TO JORGE AT [facility]. D/C'D THE GTUBE FEEDING. PT STILL GETTING THE VANCO. WILL CONTINUE TO GIVE UNTIL TRANSPORTATION GETS HERE. DAUGHTER IS HERE WITH [employer] FOR THE TRANSPORT. WENT TO ADMISSIONS TO SIGN PAPERS. PT RESTING COMFORTABLY. WILL CONTINUE TO MONITOR PT.
--- NOTE | 2019-02-14 17:39 | NUR ---
SPOKE WITH NORBERTO FROM [employer] [facility]. ETA FOR TRIM SETTER IS AT 1845 HRS. MARILEE ASSIGNED MADE AWARE.
--- NOTE | 2019-02-14 19:05 | NUR ---
TRANSPORTERS CAME AND TOOK PT. PT IN STABLE CONDITION.
== END 2019-02-14 19:05 | DRG 252 ==
LOC: MED 11:36 → MTU 12:20
PROVIDERS: ADMIT Family Medicine; ATTEND Family Medicine
PROC: 0DB68ZX Excision of Stomach, Via Natural or Artificial Opening Endoscopic, Diagnostic (ICD-10-PCS; 2019-02-12)
PROC: 0D798ZZ Dilation of Duodenum, Via Natural or Artificial Opening Endoscopic (ICD-10-PCS; principal; 2019-02-12 15:00)
DX: K94.23 Gastrostomy malfunction (principal); A41.89 Other specified sepsis; J69.0 Pneumonitis due to inhalation of food and vomit; E43 Unspecified severe protein-calorie malnutrition; K26.4 Chronic or unspecified duodenal ulcer with hemorrhage; K22.10 Ulcer of esophagus without bleeding; E83.41 Hypermagnesemia; K31.1 Adult hypertrophic pyloric stenosis; S72.011A Unspecified intracapsular fracture of right femur, initial encounter for closed fracture; E11.9 Type 2 diabetes mellitus without complications; D64.9 Anemia, unspecified; R13.10 Dysphagia, unspecified; F03.90 Unspecified dementia, unspecified severity, without behavioral disturbance, psychotic disturbance, mood disturbance, and anxiety; J44.9 Chronic obstructive pulmonary disease, unspecified; K21.0 Gastro-esophageal reflux disease with esophagitis; K44.9 Diaphragmatic hernia without obstruction or gangrene; I10 Essential (primary) hypertension; M81.0 Age-related osteoporosis without current pathological fracture; G89.29 Other chronic pain; E78.5 Hyperlipidemia, unspecified; K59.09 Other constipation; E87.6 Hypokalemia; X58.XXXA Exposure to other specified factors, initial encounter; Z68.24 Body mass index [BMI] 24.0-24.9, adult; Z86.73 Personal history of transient ischemic attack (TIA), and cerebral infarction without residual deficits; Y93.89 Activity, other specified; Y92.89 Other specified places as the place of occurrence of the external cause; Y99.8 Other external cause status
CPT/HCPCS: 36415; 71045; 73060; 74018; 74241; 74270; 80048; 80053; 80305; 81001; 82150; 82948; 83036; 83605; 83690; 83735; 84100; 84443; 85025; 85610; 85730; 86677; 87040; 87070; 87081; 87086; 87205; 89220; 99285; J1200; J1644; J1815; J2250; J2543; J3010; J3370; J7030; J7060; J8597; Q0092; Q9967